=== PATIENT | male | born 1935 | race Caucasian/White ===

== ENCOUNTER 2017-10-26 09:35 | Day surgery (SDC) | payer MEDICARE, BC ==
[~2017-10-26] VITALS: Ht 188 cm; Wt 87.3 kg
[2017-10-26 10:06] VITALS: BP 131/87
[2017-10-26] MEDS ORDERED: LEVO50TA5 PO (10:17)
[2017-10-26] MEDS ORDERED: DRON400T PO (10:17)
[2017-10-26] MEDS ORDERED: DILT120C58 PO (10:17)
[2017-10-26] MEDS ORDERED: GABA300C10 PO (10:17)
[2017-10-26] MEDS ORDERED: APIX5TAB PO (10:17)
[2017-10-26 10:32] LABS: BASOPHILS # (AUTO) 0.02 x10^3/uL (0-0.1); BASOPHILS % (AUTO) 0 % (0-1); EOSINOPHILS # (AUTO) 0.07 x10^3/uL (0-0.4); EOSINOPHILS % (AUTO) 1 % (1-7); LYMPHOCYTES # (AUTO) 1.24 x10^3/uL (1-3.4); LYMPHOCYTES % (AUTO) 24 % (22-44); MD NO; MEAN CORPUSCULAR HEMOGLOBIN 33.2 pg (27.5-34.5); MEAN CORPUSCULAR HGB CONC 33.8 g/dL (33.2-36.2); MEAN CORPUSCULAR VOLUME 98.3 fL (81-97); MEAN PLATELET VOLUME 8.2 fL (7.4-10.4); MONOCYTES # (AUTO) 0.55 x10^3/uL (0.2-0.8); MONOCYTES % (AUTO) 10 % (2-9); NEUTROPHILS # (AUTO) 3.36 x10^3/uL (1.8-6.8); NEUTROPHILS % (AUTO) 64 % (42-75); PLATELET COUNT 248 x10^3/uL (130-400); RED BLOOD COUNT 5.17 x10^6/uL (4.38-5.82); RED CELL DISTRIBUTION WIDTH 13.6 % (9.4-14.8)
[2017-10-26 10:43] LABS: ANION GAP 10 mmol/L (5-15); CALCIUM 8.7 mg/dL (8.5-10.1); CHLORIDE 106 mmol/L (98-107); CREATININE 1.56 mg/dL (0.7-1.3)
[2017-10-26] MEDS ORDERED: PROPOFOL 10 MG/ML, 20ML ONE (16:23)
== END 2017-10-26 12:07 | disposition home or self-care (01) ==
LOC: CACL 09:35
PROVIDERS: ATTEND Internal Medicine Cardiovascular Disease
DX: I48.0 Paroxysmal atrial fibrillation (principal); I48.92 Unspecified atrial flutter; Z87.39 Personal history of other diseases of the musculoskeletal system and connective tissue; I10 Essential (primary) hypertension; Z79.01 Long term (current) use of anticoagulants; I49.5 Sick sinus syndrome; E03.9 Hypothyroidism, unspecified
CPT/HCPCS: 36415; 80048; 85025; 92960; 93005; J2704

== ENCOUNTER 2018-03-26 15:15 | Emergency (ER) | payer MEDICARE, BC ==
[~2018-03-26] VITALS: Ht 188 cm; Wt 87.7 kg
[~2018-03-26 15:15] MED LIST: APIX5TAB PO; DILT120C58 PO; DRON400T PO; GABA300C10 PO; LEVO50TA5 PO
[2018-03-26 16:36] LABS: BASOPHILS # (AUTO) 0.03 x10^3/uL (0-0.1); BASOPHILS % (AUTO) 0 % (0-1); EOSINOPHILS # (AUTO) 0.08 x10^3/uL (0-0.4); EOSINOPHILS % (AUTO) 1 % (1-7); LYMPHOCYTES # (AUTO) 1.61 x10^3/uL (1-3.4); LYMPHOCYTES % (AUTO) 26 % (22-44); MD NO; MEAN CORPUSCULAR HEMOGLOBIN 32.9 pg (27.5-34.5); MEAN CORPUSCULAR HGB CONC 33.5 g/dL (33.2-36.2); MEAN CORPUSCULAR VOLUME 98.2 fL (81-97); MEAN PLATELET VOLUME 8.1 fL (7.4-10.4); MONOCYTES # (AUTO) 0.78 x10^3/uL (0.2-0.8); MONOCYTES % (AUTO) 13 % (2-9); NEUTROPHILS # (AUTO) 3.77 x10^3/uL (1.8-6.8); NEUTROPHILS % (AUTO) 60 % (42-75); PLATELET COUNT 233 x10^3/uL (130-400); RED BLOOD COUNT 4.67 x10^6/uL (4.38-5.82); RED CELL DISTRIBUTION WIDTH 13.5 % (9.4-14.8)
[2018-03-26 16:46] LABS: ALANINE AMINOTRANSFERASE 29 U/L (12-78); ALBUMIN 3.4 g/dL (3.4-5.0); ANION GAP 9 mmol/L (5-15); CALCIUM 8.6 mg/dL (8.5-10.1); CHLORIDE 107 mmol/L (98-107); CREATININE 1.56 mg/dL (0.7-1.3)
[2018-03-26 16:49] LABS: ALKALINE PHOSPHATASE 40 U/L (45-117); BILIRUBIN,TOTAL 0.6 mg/dL (0.2-1.0); TOTAL PROTEIN 6.6 g/dL (6.4-8.2)
[2018-03-26 16:58] VITALS: BP 122/84
[2018-03-26 17:11] LABS: MICROSCOPIC NOT IND
[2018-03-26 17:15] LABS: CULTURE INDICATED? NO
== END 2018-03-26 18:13 | disposition home or self-care (01) ==
LOC: ED 17:05
DX: R10.30 Lower abdominal pain, unspecified (principal)
CPT/HCPCS: 36415; 74176; 80053; 81003; 83605; 83690; 85025; 99285

== ENCOUNTER → 2018-04-11 | Outpatient (CLI) | payer MEDICARE, BC | END | disposition home or self-care (01) | LOC: RAD 14:45 | PROVIDERS: ATTEND Internal Medicine | DX: M51.35 Other intervertebral disc degeneration, thoracolumbar region (principal); M41.86 Other forms of scoliosis, lumbar region; M43.8X5 Other specified deforming dorsopathies, thoracolumbar region | CPT/HCPCS: 72072; 72110 ==

== ENCOUNTER → 2018-05-29 | Outpatient (CLI) | payer MEDICARE, BC | END | disposition home or self-care (01) | LOC: CFH 12:14 | PROVIDERS: ATTEND Family Medicine | DX: R10.30 Lower abdominal pain, unspecified (principal) | CPT/HCPCS: 74018 ==

== ENCOUNTER → 2018-09-07 | Outpatient (CLI) | payer MEDICARE, BC ==
[~2018-09-07] MED LIST changes: +REGADENOSON 0.4 MG/5 ML SYRINGE ONE
== END | disposition home or self-care (01) ==
LOC: CVU 06:56
PROVIDERS: ATTEND Internal Medicine Cardiovascular Disease
DX: I08.1 Rheumatic disorders of both mitral and tricuspid valves (principal); I48.0 Paroxysmal atrial fibrillation
CPT/HCPCS: 78452; 93017; 93306; A9502; J2785

== ENCOUNTER 2018-10-06 07:54 | Day surgery (SDC) | payer MEDICARE, BC ==
[~2018-10-06] VITALS: Ht 188 cm; Wt 85.0 kg
[~2018-10-06 07:54] MED LIST changes: -REGADENOSON 0.4 MG/5 ML SYRINGE ONE
[2018-10-06] MEDS ORDERED: SODIUM CHLORIDE 0.9% 500 ML IV PRN (08:18)
[2018-10-06] MEDS ORDERED: TRAM50TA2 PO (09:06)
[2018-10-06] MEDS ORDERED: METO25TA35 PO (09:06)
[2018-10-06 09:17] VITALS: BP 121/96
[2018-10-06 09:24] LABS: ANION GAP 4 mmol/L (5-15); CALCIUM 9.4 mg/dL (8.5-10.1); CHLORIDE 106 mmol/L (98-107); CREATININE 1.37 mg/dL (0.7-1.3)
[2018-10-06] MEDS ORDERED: PROPOFOL 10 MG/ML, 20ML ONE (10:48)
== END 2018-10-06 12:13 | disposition home or self-care (01) ==
LOC: CACL 07:54
PROVIDERS: ATTEND Internal Medicine Cardiovascular Disease
DX: I48.92 Unspecified atrial flutter (principal); I10 Essential (primary) hypertension; I48.91 Unspecified atrial fibrillation; M19.90 Unspecified osteoarthritis, unspecified site; Z85.46 Personal history of malignant neoplasm of prostate; Z79.899 Other long term (current) drug therapy; Z98.890 Other specified postprocedural states
CPT/HCPCS: 36415; 80048; 92960; J2704

== ENCOUNTER → 2018-10-26 | Outpatient (CLI) | payer MEDICARE, BC ==
[~2018-10-26] MED LIST changes: +ACET500C3 PO; +DULO30CA2 PO; +METO25TA35 PO; +TRAM50TA2 PO
[2018-10-26 12:58] LABS: BASOPHILS # (AUTO) 0.02 x10^3/uL (0-0.1); BASOPHILS % (AUTO) 0 % (0-1); EOSINOPHILS # (AUTO) 0.04 x10^3/uL (0-0.4); EOSINOPHILS % (AUTO) 0 % (1-7); LYMPHOCYTES # (AUTO) 1.21 x10^3/uL (1-3.4); LYMPHOCYTES % (AUTO) 13 % (22-44); MD NO; MEAN CORPUSCULAR HGB CONC 33.4 g/dL (33.2-36.2); MEAN CORPUSCULAR VOLUME 95.9 fL (81-97); MEAN PLATELET VOLUME 7.9 fL (7.4-10.4); MONOCYTES # (AUTO) 0.94 x10^3/uL (0.2-0.8); MONOCYTES % (AUTO) 10 % (2-9); NEUTROPHILS # (AUTO) 6.99 x10^3/uL (1.8-6.8); NEUTROPHILS % (AUTO) 76 % (42-75); PLATELET COUNT 371 x10^3/uL (130-400); RED BLOOD COUNT 4.14 x10^6/uL (4.38-5.82); RED CELL DISTRIBUTION WIDTH 13.9 % (9.4-14.8)
[2018-10-26 13:34] LABS: ANION GAP 6 mmol/L (5-15); CALCIUM 9.8 mg/dL (8.5-10.1); CHLORIDE 99 mmol/L (98-107); CREATININE 1.48 mg/dL (0.7-1.3)
== END | disposition home or self-care (01) ==
LOC: CFH 11:12
PROVIDERS: ATTEND Family Medicine
DX: R06.02 Shortness of breath (principal); I48.0 Paroxysmal atrial fibrillation; I49.5 Sick sinus syndrome; N28.9 Disorder of kidney and ureter, unspecified; I10 Essential (primary) hypertension
CPT/HCPCS: 36415; 71046; 80048; 85025

== ENCOUNTER 2018-10-30 08:13 | Observation (INO) | payer MEDICARE, BC ==
[~2018-10-30] VITALS: Ht 188 cm; Wt 81.4 kg
[~2018-10-30 08:13] MED LIST changes: -ACET500C3 PO; -DULO30CA2 PO
[2018-10-30] MEDS ORDERED: SODIUM CHLORIDE 0.9% 1,000 ML IV SCH (08:35)
[2018-10-30 08:44] VITALS: BP 116/91
[2018-10-30] MEDS ORDERED: SODIUM CHLORIDE 0.9% 1,000 ML IV ONE (09:00)
[2018-10-30] MEDS ORDERED: PLEASE ENTER HEIGHT AND WEIGHT MC SCH (09:00)
[2018-10-30] MEDS ORDERED: DULO30CA2 PO (09:03)
[2018-10-30] MEDS ORDERED: ACET500C3 PO (09:05)
[2018-10-30] MEDS ORDERED: ACETAMINOPHEN 325 MG TABLET ONE (10:55)
[2018-10-30] MEDS ORDERED: ACETAMINOPHEN 325 MG TABLET PO ONE (11:00)
[2018-10-30] MEDS ORDERED: LIDOCAINE 1%, 20ML ONE (11:39)
[2018-10-30] MEDS ORDERED: FENTANYL PF 250 MCG/5ML ONE (11:43)
[2018-10-30] MEDS ORDERED: PROPOFOL 50 ML ONE (11:43)
[2018-10-30] MEDS ORDERED: DEXAMETHASONE 4 MG/ML, 1ML ONE (12:20)
[2018-10-30] MEDS ORDERED: ONDANSETRON 2MG/ML, 2ML ONE (12:20)
[2018-10-30] MEDS ORDERED: ROCURONIUM 10MG/ML,5ML ONE (12:20)
[2018-10-30] MEDS ORDERED: SUCCINYLCHOLINE 20 MG/ML, 10ML ONE (12:20)
[2018-10-30] MEDS ORDERED: MIDAZOLAM 1 MG/ML, 2ML ONE (12:23)
[2018-10-30] MEDS ORDERED: PROTAMINE SULFATE 10 MG/ML, 5ML ONE (13:53)
[2018-10-30] MEDS ORDERED: MORPHINE SULFATE 4 MG/ML, 1ML IVPush PRN (14:30)
[2018-10-30] MEDS ORDERED: ONDANSETRON ODT 8 MG PO PRN (14:30)
[2018-10-30] MEDS ORDERED: ACETAMINOPHEN 325 MG TABLET PO PRN (14:30)
[2018-10-30] MEDS ORDERED: ONDANSETRON 2MG/ML, 2ML IV PRN (14:30)
[2018-10-30] MEDS ORDERED: DIAZEPAM 5 MG/ML, 2ML IVPush PRN (14:30)
[2018-10-30] MEDS ORDERED: ACETAMINOPHEN 500 MG PO PRN (14:30)
[2018-10-30] MEDS ORDERED: EPHEDRINE 50 MG/ML, 1ML IM PRN (14:30)
[2018-10-30] MEDS ORDERED: OXYcodone 5 MG/5 ML ORAL.SOL UDC PO PRN (14:30)
[2018-10-30] MEDS ORDERED: DIPHENHYDRAMINE 50 MG/ML, 1ML IVPush PRN (14:30)
[2018-10-30] MEDS ORDERED: FENTANYL PF 100 MCG/2ML IV PRN (14:30)
[2018-10-30] MEDS ORDERED: APIXABAN 5 MG TABLET ONE (14:59)
[2018-10-30] MEDS: APIXABAN 5 MG TABLET PO SCH (15:01)
[2018-10-30] MEDS ORDERED: OXYcodone 5 MG/5 ML ORAL.SOL UDC ONE (15:02)
[2018-10-30] MEDS ORDERED: FENTANYL PF 100 MCG/2ML ONE (15:02)
[2018-10-30 15:53] VITALS: BP 95/62
[2018-10-30] MEDS: GABAPENTIN 300 MG CAPSULE PO SCH ×2 (16:13→20:25)
[2018-10-30 18:50] VITALS: BP 94/58
[2018-10-30] MEDS: ACETAMINOPHEN 325 MG TABLET PO PRN (20:25)
[2018-10-30] MEDS: METOPROLOL TARTRATE 25 MG TABLET PO SCH (20:29)
[2018-10-30] MEDS ORDERED: APIXABAN 5 MG TABLET PO SCH (21:00)
[2018-10-31 00:14] VITALS: BP 112/70
[2018-10-31] MEDS: ACETAMINOPHEN 325 MG TABLET PO PRN ×2 (05:05→09:38)
[2018-10-31 07:04] VITALS: BP 116/74
[2018-10-31] MEDS ORDERED: DULOXETINE 30 MG CAPSULE.DR PO SCH (09:00)
[2018-10-31] MEDS ORDERED: LEVOTHYROXINE 50 MCG TABLET PO SCH (09:00)
[2018-10-31] MEDS: APIXABAN 5 MG TABLET PO SCH (09:29)
[2018-10-31] MEDS: GABAPENTIN 300 MG CAPSULE PO SCH (09:29)
[2018-10-31] MEDS: METOPROLOL TARTRATE 25 MG TABLET PO SCH (09:29)
[2018-10-31 12:39] VITALS: BP 121/81
== END 2018-10-31 13:00 | disposition home or self-care (01) ==
LOC: CACL 08:13 → INTOOBSV 14:02 → ORIP 14:02 → 5SO 15:36
PROVIDERS: ADMIT Internal Medicine Cardiovascular Disease; ATTEND Internal Medicine Cardiovascular Disease
DX: I48.4 Atypical atrial flutter (principal); I10 Essential (primary) hypertension; I48.0 Paroxysmal atrial fibrillation; M19.90 Unspecified osteoarthritis, unspecified site; Z95.0 Presence of cardiac pacemaker
CPT/HCPCS: 85347; 93308; 93312; 93321; 93325; 93462; 93613; 93621; 93653; 93662; C1730; C1732; C1759; C1766; C1893; C1894; G0378; J0330; J1100; J1642; J2250; J2405; J2704; J2720; J3010; J3490

== ENCOUNTER 2018-11-08 09:19 | Inpatient (IN) | payer MEDICARE, BC ==
[~2018-11-08] VITALS: Ht 188 cm; Wt 79.9 kg
[~2018-11-08 09:19] MED LIST changes: +ACET500C3 PO; +DULO30CA2 PO
--- NOTE | 2018-11-08 09:37 | NUR ---
PT PRESENTED TO ED WITH ABD PAIN AND BLOOD IN URINE THAT HAS BEEN GOING ON FOR A " WHILE". PT IN RAPID AFIB WITH RVR. PT HAD A CARDIAC ABLATION 1.5 WEEKS AGO. EKG DONE IN TRIAGE. PT PLACED IN TRAUMA AND PLACED ON BP, CARDIAC, AND CONT. PULSE OXIMETER. ASSESSMENT COMPLETED. AT BEDSIDE AND AWAITING MD.
[2018-11-08] MEDS ORDERED: DILTIAZEM 125 MG in SODIUM CHLORIDE 0.9% 100 ML IV SCH (09:47)
[2018-11-08] MEDS ORDERED: DILTIAZEM 5 MG/ML, 5ML ONE (09:50)
[2018-11-08] MEDS ORDERED: ONDANSETRON 2MG/ML, 2ML ONE (09:51)
[2018-11-08] MEDS ORDERED: MORPHINE SULFATE 4 MG/ML, 1ML ONE (09:51)
[2018-11-08] MEDS ORDERED: ONDANSETRON 2MG/ML, 2ML IVPush ONE (10:00)
[2018-11-08] MEDS ORDERED: DILTIAZEM 5 MG/ML, 5ML IV ONE (10:00)
[2018-11-08] MEDS ORDERED: MORPHINE SULFATE 4 MG/ML, 1ML IVPush PRN (10:00)
--- NOTE | 2018-11-08 10:10 | NUR ---
CARDIZEM GTT STARTED AND HEART RATE DOWN TO 107. PT THEN TAKEN TO CT SCAN.
[2018-11-08] MEDS ORDERED: HYDROmorphone 1 MG/ML, 1ML VIAL ONE ×2 (10:14→12:19)
[2018-11-08 10:17] LABS: BASOPHILS # (AUTO) 0.02 x10^3/uL (0-0.1); BASOPHILS % (AUTO) 0 % (0-1); EOSINOPHILS # (AUTO) 0.04 x10^3/uL (0-0.4); EOSINOPHILS % (AUTO) 0 % (1-7); LYMPHOCYTES # (AUTO) 0.94 x10^3/uL (1-3.4); LYMPHOCYTES % (AUTO) 9 % (22-44); MD NO; MEAN CORPUSCULAR HEMOGLOBIN 31.2 pg (27.5-34.5); MEAN CORPUSCULAR HGB CONC 32.8 g/dL (33.2-36.2); MEAN CORPUSCULAR VOLUME 95.1 fL (81-97); MEAN PLATELET VOLUME 7.8 fL (7.4-10.4); MONOCYTES # (AUTO) 1.06 x10^3/uL (0.2-0.8); MONOCYTES % (AUTO) 10 % (2-9); NEUTROPHILS # (AUTO) 8.51 x10^3/uL (1.8-6.8); NEUTROPHILS % (AUTO) 81 % (42-75); PLATELET COUNT 378 x10^3/uL (130-400); RED BLOOD COUNT 4.46 x10^6/uL (4.38-5.82); RED CELL DISTRIBUTION WIDTH 14.1 % (9.4-14.8)
[2018-11-08 10:24] LABS: ALBUMIN 3.5 g/dL (3.4-5.0); ANION GAP 11 mmol/L (5-15); CALCIUM 9.7 mg/dL (8.5-10.1); CHLORIDE 102 mmol/L (98-107)
[2018-11-08 10:28] LABS: ALANINE AMINOTRANSFERASE 23 U/L (12-78); ALKALINE PHOSPHATASE 49 U/L (45-117); BILIRUBIN,TOTAL 0.7 mg/dL (0.2-1.0); CREATININE 1.45 mg/dL (0.7-1.3); TOTAL PROTEIN 7.7 g/dL (6.4-8.2)
[2018-11-08] MEDS ORDERED: HYDROmorphone 1 MG/ML, 1ML INJ IV ONE (10:30)
--- NOTE | 2018-11-08 10:31 | NUR ---
PT BACK FROM CT SCAN. PT PLACED ON BP, CARDIAC AND CONT. PULSE OXIMETR. PT STATES ABD PAIN OF 10/10. MD AWARE AND DILAUDID GIVEN.
[2018-11-08 10:51] LABS: INTERNATIONAL NORMALIZED RATIO 1.09 (0.93-1.1); PROTHROMBIN TIME 11.4 Seconds (9.6-11.5)
[2018-11-08 11:30] LABS: MICROSCOPIC AUTO
[2018-11-08 11:39] LABS: CULTURE INDICATED? NO
--- NOTE | 2018-11-08 12:06 | NUR ---
ATTEMPTED TO CALL REPORT TO FLOOR. NURSE NOT AVAILABLE.
--- NOTE | 2018-11-08 12:18 | NUR ---
REPORT CALLED TO KAJAL. PT REQUESTING MORE PAIN MEDICATIONS.
--- NOTE | 2018-11-08 12:26 | NUR ---
PT TAKEN TO FLOOR ON ZOLL MONITOR.
[2018-11-08] MEDS ORDERED: HYDROmorphone 2 MG/ML, 1ML IV ONE (12:30)
[2018-11-08 12:40] VITALS: BP 113/72
[2018-11-08] MEDS ORDERED: ONDANSETRON 2MG/ML, 2ML IVPush PRN (13:00)
[2018-11-08] MEDS ORDERED: HYDROmorphone 2 MG/ML, 1ML IVPush PRN (13:00)
[2018-11-08] MEDS: DILTIAZEM 125 MG in SODIUM CHLORIDE 0.9% 100 ML IV SCH (13:00)
[2018-11-08] MEDS: GABAPENTIN 300 MG CAPSULE PO SCH ×2 (16:16→19:49)
[2018-11-08] MEDS: MORPHINE SULFATE 4 MG/ML, 1ML IVPush PRN ×4 (16:16→23:57)
[2018-11-08 19:26] VITALS: BP 119/74
[2018-11-08] MEDS: ACETAMINOPHEN 325 MG TABLET PO PRN (19:49)
[2018-11-08] MEDS: METOPROLOL TARTRATE 25 MG TABLET PO SCH (19:49)
[2018-11-08] MEDS: D5%-0.45NACL+KCL 20MEQ 1,000 ML IV SCH (23:56)
[2018-11-09 01:11] VITALS: BP 128/78
[2018-11-09] MEDS: ACETAMINOPHEN 325 MG TABLET PO PRN ×3 (02:15→14:26)
[2018-11-09] MEDS: MORPHINE SULFATE 4 MG/ML, 1ML IVPush PRN ×3 (04:43→12:38)
[2018-11-09] MEDS: DILTIAZEM 125 MG in SODIUM CHLORIDE 0.9% 100 ML IV SCH (04:51)
[2018-11-09 05:06] LABS: ANION GAP 6 mmol/L (5-15); CALCIUM 9.5 mg/dL (8.5-10.1); CHLORIDE 103 mmol/L (98-107)
[2018-11-09 05:12] LABS: BASOPHILS # (AUTO) 0.01 x10^3/uL (0-0.1); BASOPHILS % (AUTO) 0 % (0-1); EOSINOPHILS # (AUTO) 0.05 x10^3/uL (0-0.4); EOSINOPHILS % (AUTO) 0 % (1-7); LYMPHOCYTES # (AUTO) 1.06 x10^3/uL (1-3.4); LYMPHOCYTES % (AUTO) 9 % (22-44); MD NO; MEAN CORPUSCULAR HEMOGLOBIN 32.2 pg (27.5-34.5); MEAN CORPUSCULAR HGB CONC 33.5 g/dL (33.2-36.2); MEAN CORPUSCULAR VOLUME 96.1 fL (81-97); MEAN PLATELET VOLUME 7.6 fL (7.4-10.4); MONOCYTES % (AUTO) 12 % (2-9); NEUTROPHILS # (AUTO) 8.98 x10^3/uL (1.8-6.8); NEUTROPHILS % (AUTO) 78 % (42-75); PLATELET COUNT 321 x10^3/uL (130-400); RED BLOOD COUNT 4.02 x10^6/uL (4.38-5.82); RED CELL DISTRIBUTION WIDTH 14.1 % (9.4-14.8)
[2018-11-09 05:21] LABS: CREATININE 1.67 mg/dL (0.7-1.3)
[2018-11-09] MEDS: D5%-0.45NACL+KCL 20MEQ 1,000 ML IV SCH ×3 (06:05→16:59)
[2018-11-09 07:08] VITALS: BP 136/81
[2018-11-09] MEDS: GABAPENTIN 300 MG CAPSULE PO SCH ×3 (08:23→21:31)
[2018-11-09] MEDS: LEVOTHYROXINE 50 MCG TABLET PO SCH (08:23)
[2018-11-09] MEDS: METOPROLOL TARTRATE 25 MG TABLET PO SCH ×2 (08:24→21:31)
[2018-11-09] MEDS ORDERED: ONDANSETRON 2MG/ML, 2ML ONE (10:16)
[2018-11-09] MEDS ORDERED: SUCCINYLCHOLINE 20 MG/ML, 10ML ONE (10:16)
[2018-11-09] MEDS ORDERED: PROPOFOL 10 MG/ML, 20ML ONE (10:16)
[2018-11-09] MEDS ORDERED: ROCURONIUM 10MG/ML,5ML ONE (10:16)
[2018-11-09 14:04] VITALS: BP 139/81
[2018-11-09] MEDS ORDERED: MIDAZOLAM 1 MG/ML, 2ML ONE (15:09)
[2018-11-09] MEDS ORDERED: FENTANYL PF 100 MCG/2ML ONE (15:09)
[2018-11-09] MEDS ORDERED: DEXAMETHASONE 4 MG/ML, 1ML ONE (15:35)
[2018-11-09] MEDS ORDERED: OMNIPAQUE 350 MG/ML, 50 ML BOTTLE ONE (16:24)
[2018-11-09] MEDS ORDERED: MEPERIDINE/PF 25MG/0.5ML IVPush PRN (16:30)
[2018-11-09] MEDS ORDERED: HYDROmorphone 2 MG/ML, 1ML IVPush PRN (16:30)
[2018-11-09] MEDS ORDERED: hydrALAzine 20 MG/ML, 1ML IV PRN (16:30)
[2018-11-09] MEDS ORDERED: ONDANSETRON ODT 8 MG PO PRN (16:30)
[2018-11-09] MEDS ORDERED: PROMETHAZINE 12.5 MG SUPP PR PRN (16:30)
[2018-11-09] MEDS ORDERED: FENTANYL PF 100 MCG/2ML IV PRN (16:30)
[2018-11-09] MEDS ORDERED: PROMETHAZINE 25 MG/ML, 1ML IV PRN (16:30)
[2018-11-09] MEDS ORDERED: MORPHINE SULFATE 4 MG/ML, 1ML IVPush PRN (16:30)
[2018-11-09] MEDS ORDERED: MIDAZOLAM 1 MG/ML, 2ML IV PRN (16:30)
[2018-11-09] MEDS ORDERED: DIAZEPAM 5 MG/ML, 2ML IVPush PRN (16:30)
[2018-11-09] MEDS ORDERED: DILTIAZEM 120 MG CAP.ER.24H PO SCH (16:30)
[2018-11-09] MEDS ORDERED: EPHEDRINE 50 MG/ML, 1ML IVPush PRN (16:30)
[2018-11-09] MEDS ORDERED: ONDANSETRON 2MG/ML, 2ML IV PRN (16:30)
[2018-11-09] MEDS ORDERED: OXYcodone 5 MG/5 ML ORAL.SOL UDC PO PRN (16:30)
[2018-11-09] MEDS ORDERED: ALBUTEROL SULFATE 2.5 MG/3 ML NPPB PRN (16:30)
[2018-11-09] MEDS ORDERED: LABETALOL 5MG/ML, 20ML IV PRN (16:30)
[2018-11-09] MEDS ORDERED: HALOPERIDOL 5 MG/ML IV PRN (16:30)
[2018-11-09] MEDS ORDERED: MEPERIDINE/PF 25MG/ML,1ML ONE (17:00)
[2018-11-09 17:53] VITALS: BP 132/76
[2018-11-09] MEDS: DILTIAZEM 120 MG CAP.ER.24H PO SCH (18:17)
[2018-11-09] MEDS: SODIUM CHLORIDE 0.9% 1,000 ML IV SCH (18:17)
[2018-11-09 19:14] VITALS: BP 109/43
[2018-11-10] MEDS: SODIUM CHLORIDE 0.9% 1,000 ML IV SCH ×5 (00:29→20:26)
[2018-11-10 02:39] VITALS: BP 117/76
[2018-11-10] MEDS: ACETAMINOPHEN 325 MG TABLET PO PRN ×4 (02:45→22:06)
[2018-11-10 05:07] LABS: BASOPHILS # (AUTO) 0.01 x10^3/uL (0-0.1); BASOPHILS % (AUTO) 0 % (0-1); EOSINOPHILS % (AUTO) 0 % (1-7); LYMPHOCYTES # (AUTO) 0.61 x10^3/uL (1-3.4); LYMPHOCYTES % (AUTO) 6 % (22-44); MD NO; MEAN CORPUSCULAR HEMOGLOBIN 31.6 pg (27.5-34.5); MEAN PLATELET VOLUME 7.9 fL (7.4-10.4); MONOCYTES # (AUTO) 0.48 x10^3/uL (0.2-0.8); MONOCYTES % (AUTO) 5 % (2-9); NEUTROPHILS # (AUTO) 8.88 x10^3/uL (1.8-6.8); NEUTROPHILS % (AUTO) 89 % (42-75); PLATELET COUNT 285 x10^3/uL (130-400); RED CELL DISTRIBUTION WIDTH 14.2 % (9.4-14.8)
[2018-11-10 05:20] LABS: CHLORIDE 106 mmol/L (98-107)
[2018-11-10 05:26] LABS: ANION GAP 6 mmol/L (5-15); CALCIUM 9.1 mg/dL (8.5-10.1); CREATININE 1.45 mg/dL (0.7-1.3)
[2018-11-10 09:10] VITALS: BP 104/68
[2018-11-10] MEDS: METOPROLOL TARTRATE 25 MG TABLET PO SCH ×2 (09:39→20:23)
[2018-11-10] MEDS: LEVOTHYROXINE 50 MCG TABLET PO SCH (09:39)
[2018-11-10] MEDS: GABAPENTIN 300 MG CAPSULE PO SCH ×3 (09:39→20:23)
[2018-11-10] MEDS ORDERED: OMNIPAQUE 350 MG/ML, 100ML BOTTLE ONE (10:04)
[2018-11-10] MEDS: APIXABAN 5 MG TABLET PO SCH ×2 (11:04→20:23)
[2018-11-10 14:46] VITALS: BP 106/67
[2018-11-10] MEDS: DILTIAZEM 120 MG CAP.ER.24H PO SCH (17:14)
[2018-11-10 19:59] VITALS: BP 111/71
[2018-11-11 01:09] VITALS: BP 134/81
[2018-11-11 05:05] LABS: BASOPHILS # (AUTO) 0.02 x10^3/uL (0-0.1); BASOPHILS % (AUTO) 0 % (0-1); EOSINOPHILS # (AUTO) 0.01 x10^3/uL (0-0.4); EOSINOPHILS % (AUTO) 0 % (1-7); LYMPHOCYTES % (AUTO) 6 % (22-44); MD NO; MEAN CORPUSCULAR HEMOGLOBIN 31.9 pg (27.5-34.5); MEAN CORPUSCULAR HGB CONC 33.4 g/dL (33.2-36.2); MEAN CORPUSCULAR VOLUME 95.6 fL (81-97); MEAN PLATELET VOLUME 7.8 fL (7.4-10.4); MONOCYTES # (AUTO) 1.16 x10^3/uL (0.2-0.8); MONOCYTES % (AUTO) 8 % (2-9); NEUTROPHILS # (AUTO) 12.25 x10^3/uL (1.8-6.8); NEUTROPHILS % (AUTO) 85 % (42-75); PLATELET COUNT 313 x10^3/uL (130-400); RED BLOOD COUNT 3.88 x10^6/uL (4.38-5.82); RED CELL DISTRIBUTION WIDTH 14.1 % (9.4-14.8)
[2018-11-11 05:07] LABS: CALCIUM 9.3 mg/dL (8.5-10.1); CHLORIDE 108 mmol/L (98-107)
[2018-11-11 05:12] LABS: ALANINE AMINOTRANSFERASE 21 U/L (12-78); ALBUMIN 2.7 g/dL (3.4-5.0); ALKALINE PHOSPHATASE 41 U/L (45-117); ANION GAP 8 mmol/L (5-15); BILIRUBIN,TOTAL 0.3 mg/dL (0.2-1.0); CREATININE 1.36 mg/dL (0.7-1.3); TOTAL PROTEIN 6.2 g/dL (6.4-8.2)
[2018-11-11] MEDS: ACETAMINOPHEN 325 MG TABLET PO PRN (07:13)
[2018-11-11 08:00] VITALS: BP 129/79
[2018-11-11] MEDS: GABAPENTIN 300 MG CAPSULE PO SCH (08:17)
[2018-11-11] MEDS: METOPROLOL TARTRATE 25 MG TABLET PO SCH (08:17)
[2018-11-11] MEDS: DILTIAZEM 120 MG CAP.ER.24H PO SCH (08:17)
[2018-11-11] MEDS: LEVOTHYROXINE 50 MCG TABLET PO SCH (08:17)
[2018-11-11] MEDS: APIXABAN 5 MG TABLET PO SCH (08:18)
[2018-11-11] MEDS: SODIUM CHLORIDE 0.9% 1,000 ML IV SCH (10:36)
[2018-11-11] MEDS ORDERED: DILT120C9 PO (10:49)
== END 2018-11-11 13:10 | disposition home or self-care (01) | DRG 660 ==
LOC: ED 11:01 → EDIP 11:27 → 5SO 12:32 → DCLOUNGE 11-11 12:35
PROVIDERS: ADMIT Hospitalist; ATTEND Hospitalist
PROC: 0T778DZ Dilation of Left Ureter with Intraluminal Device, Via Natural or Artificial Opening Endoscopic (ICD-10-PCS; 2018-11-09)
PROC: 0T9B8ZZ Drainage of Bladder, Via Natural or Artificial Opening Endoscopic (ICD-10-PCS; 2018-11-09)
PROC: BT1F1ZZ Fluoroscopy of Left Kidney, Ureter and Bladder using Low Osmolar Contrast (ICD-10-PCS; principal; 2018-11-09 14:30)
DX: N13.30 Unspecified hydronephrosis (principal); E44.0 Moderate protein-calorie malnutrition; D68.69 Other thrombophilia; N28.89 Other specified disorders of kidney and ureter; I48.0 Paroxysmal atrial fibrillation; N17.0 Acute kidney failure with tubular necrosis; R31.0 Gross hematuria; G89.29 Other chronic pain; M54.9 Dorsalgia, unspecified; M54.6 Pain in thoracic spine; D72.829 Elevated white blood cell count, unspecified; Z79.01 Long term (current) use of anticoagulants; Z85.46 Personal history of malignant neoplasm of prostate; Z90.5 Acquired absence of kidney; Z68.22 Body mass index [BMI] 22.0-22.9, adult; Z95.0 Presence of cardiac pacemaker
CPT/HCPCS: 36415; 71045; 74170; 74176; 74420; 80048; 80053; 81001; 83690; 83735; 84443; 85025; 85610; 85730; 88112; 88305; 93005; 96365; 96366; 96375; 96376; C1726; G0378; J1100; J1170; J2175; J2250; J2405; J2704; J3010; Q9967; C1769; C2617; J0330; J3480; J7030

== ENCOUNTER 2018-12-02 08:20 | Emergency (ER) | payer MEDICARE, BC ==
[~2018-12-02] VITALS: Ht 188 cm; Wt 78.0 kg
[~2018-12-02 08:20] MED LIST changes: +ACET500T71 PO; +DILT120C9 PO; +METO-93 PO
[2018-12-02] MEDS ORDERED: SODIUM CHLORIDE FLUSH 10ML SYR IVF ONE (08:30)
--- NOTE | 2018-12-02 08:51 | NUR ---
CT WAITING ON LAB RESULTS TO PERFORM EXAM
[2018-12-02 08:55] LABS: BASOPHILS # (AUTO) 0.03 x10^3/uL (0-0.1); BASOPHILS % (AUTO) 1 % (0-1); EOSINOPHILS # (AUTO) 0.11 x10^3/uL (0-0.4); EOSINOPHILS % (AUTO) 2 % (1-7); LYMPHOCYTES % (AUTO) 23 % (22-44); MD NO; MEAN CORPUSCULAR HEMOGLOBIN 30.9 pg (27.5-34.5); MEAN CORPUSCULAR HGB CONC 31.6 g/dL (33.2-36.2); MEAN CORPUSCULAR VOLUME 97.6 fL (81-97); MEAN PLATELET VOLUME 7.4 fL (7.4-10.4); MONOCYTES # (AUTO) 0.63 x10^3/uL (0.2-0.8); MONOCYTES % (AUTO) 10 % (2-9); NEUTROPHILS # (AUTO) 3.97 x10^3/uL (1.8-6.8); NEUTROPHILS % (AUTO) 65 % (42-75); PLATELET COUNT 358 x10^3/uL (130-400); RED CELL DISTRIBUTION WIDTH 14.3 % (9.4-14.8)
--- NOTE | 2018-12-02 08:59 | NUR ---
THIS IS A 83 YEAR OLD MALE WHO C/O OF FLUID LEAKAGE FROM POST OP PUNCTURE SITEON LOWER ABD AREA, LARGE AMOUNT OF YELLOW, WHITE FLUID. PT HAD KIDNEY REMOVAL X 10 DAYS AGO DUE TO TUMOR REMOVAL. PT HAS HX OF A FLUTTER (UNCONTROLLED), HAD AN ABLATION X 1 MONTH AGO. FAMILY AT
[2018-12-02] MEDS ORDERED: PLEASE ENTER HEIGHT AND WEIGHT MC SCH (09:00)
[2018-12-02 09:07] LABS: ALANINE AMINOTRANSFERASE 33 U/L (12-78); ALBUMIN 3.3 g/dL (3.4-5.0); ANION GAP 6 mmol/L (5-15); CALCIUM 8.6 mg/dL (8.5-10.1); CHLORIDE 106 mmol/L (98-107)
[2018-12-02 09:09] LABS: ALKALINE PHOSPHATASE 48 U/L (45-117); BILIRUBIN,TOTAL 0.5 mg/dL (0.2-1.0); TOTAL PROTEIN 6.9 g/dL (6.4-8.2)
[2018-12-02 09:17] LABS: INTERNATIONAL NORMALIZED RATIO 1.08 (0.93-1.1); PROTHROMBIN TIME 11.3 Seconds (9.6-11.5)
[2018-12-02] MEDS ORDERED: SODIUM CHLORIDE 0.9% 1,000ML IVBOLUS ONE (09:30)
--- NOTE | 2018-12-02 09:44 | NUR ---
PT TO CT SCAN VIA [facility]
--- NOTE | 2018-12-02 10:09 | NUR ---
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 AWAITING TEST RESULTS, AT BS. PT VERALIZED NO OTHER NEEDS AT THIS TIME.
[2018-12-02 11:02] VITALS: BP 128/85
--- NOTE | 2018-12-02 11:02 | NUR ---
D/C INSTRUCTIONS GIVEN, WITH EXTRA WOUND CARE SUPPLIES, LOW FAT DIET INSTRUCTIONS GIVEN Patient/Caregiver given discharge instructions and they have confirmed that they understand the instructions. Patient ambulatory with steady gait.
== END 2018-12-02 11:05 | disposition home or self-care (01) ==
LOC: ED 08:54
DX: T81.89XA Other complications of procedures, not elsewhere classified, initial encounter (principal); I89.8 Other specified noninfective disorders of lymphatic vessels and lymph nodes; E03.9 Hypothyroidism, unspecified; M19.90 Unspecified osteoarthritis, unspecified site; I48.91 Unspecified atrial fibrillation; G89.29 Other chronic pain; Z95.0 Presence of cardiac pacemaker; Z85.46 Personal history of malignant neoplasm of prostate
CPT/HCPCS: 36415; 74176; 80053; 83690; 85025; 85610; 99284

== ENCOUNTER → 2018-12-20 | Outpatient (CLI) | payer MEDICARE, BC ==
[~2018-12-20] MED LIST changes: +DILT120C80 PO; +FLUO20CA19 PO
== END | disposition home or self-care (01) ==
LOC: PETCFH 08:01
PROVIDERS: ATTEND Specialist
DX: C65.2 Malignant neoplasm of left renal pelvis (principal); R59.9 Enlarged lymph nodes, unspecified; Z95.0 Presence of cardiac pacemaker
CPT/HCPCS: 78815; A9552

== ENCOUNTER 2018-12-22 08:06 | Observation (INO) | payer MEDICARE, BC ==
[2018-12-20 10:22] VITALS: BP 119/81
[2018-12-20 10:48] LABS: BASOPHILS # (AUTO) 0.03 x10^3/uL (0-0.1); BASOPHILS % (AUTO) 1 % (0-1); EOSINOPHILS # (AUTO) 0.11 x10^3/uL (0-0.4); EOSINOPHILS % (AUTO) 2 % (1-7); LYMPHOCYTES # (AUTO) 1.54 x10^3/uL (1-3.4); LYMPHOCYTES % (AUTO) 22 % (22-44); MD NO; MEAN CORPUSCULAR HEMOGLOBIN 31.7 pg (27.5-34.5); MEAN CORPUSCULAR HGB CONC 32.7 g/dL (33.2-36.2); MEAN CORPUSCULAR VOLUME 96.8 fL (81-97); MEAN PLATELET VOLUME 7.7 fL (7.4-10.4); MONOCYTES # (AUTO) 0.68 x10^3/uL (0.2-0.8); MONOCYTES % (AUTO) 10 % (2-9); NEUTROPHILS # (AUTO) 4.78 x10^3/uL (1.8-6.8); NEUTROPHILS % (AUTO) 67 % (42-75); PLATELET COUNT 275 x10^3/uL (130-400); RED BLOOD COUNT 4.82 x10^6/uL (4.38-5.82); RED CELL DISTRIBUTION WIDTH 15.4 % (9.4-14.8)
[2018-12-20 11:00] LABS: ALANINE AMINOTRANSFERASE 46 U/L (12-78); ALBUMIN 3.9 g/dL (3.4-5.0); ANION GAP 6 mmol/L (5-15); CALCIUM 9.1 mg/dL (8.5-10.1); CHLORIDE 102 mmol/L (98-107)
[2018-12-20 11:03] LABS: ALKALINE PHOSPHATASE 53 U/L (45-117); BILIRUBIN,TOTAL 0.9 mg/dL (0.2-1.0); CREATININE 1.94 mg/dL (0.7-1.3); TOTAL PROTEIN 7.7 g/dL (6.4-8.2)
[~2018-12-22] VITALS: Ht 188 cm; Wt 80.0 kg
[~2018-12-22 08:06] MED LIST changes: -FLUO20CA19 PO
[2018-12-22] MEDS ORDERED: SODIUM CHLORIDE 0.9% 1,000 ML IV SCH (08:15)
[2018-12-22] MEDS ORDERED: SODIUM CHLORIDE 0.9% 1,000 ML IV ONE (08:30)
[2018-12-22] MEDS ORDERED: FLUO20CA19 PO (08:44)
[2018-12-22] MEDS ORDERED: MIDAZOLAM 1 MG/ML, 2ML ONE (10:23)
[2018-12-22] MEDS ORDERED: FENTANYL PF 250 MCG/5ML ONE (10:24)
[2018-12-22] MEDS ORDERED: ROCURONIUM 10MG/ML,5ML ONE (10:26)
[2018-12-22] MEDS ORDERED: SUCCINYLCHOLINE 20 MG/ML, 10ML ONE (10:26)
[2018-12-22] MEDS ORDERED: PROPOFOL 10 MG/ML, 20ML ONE (10:26)
[2018-12-22] MEDS ORDERED: LIDOCAINE 2%, 20ML ONE (10:32)
[2018-12-22] MEDS ORDERED: ONDANSETRON 2MG/ML, 2ML ONE ×2 (10:54)
[2018-12-22] MEDS ORDERED: DEXAMETHASONE 4 MG/ML, 1ML ONE ×2 (10:54)
[2018-12-22] MEDS ORDERED: HEPARIN 1,000 UNITS/ML, 10ML ONE (12:03)
[2018-12-22] MEDS ORDERED: FENTANYL PF 100 MCG/2ML ONE (13:34)
[2018-12-22] MEDS ORDERED: APIXABAN 5 MG TABLET ONE (14:03)
[2018-12-22] MEDS ORDERED: MEPERIDINE/PF 25MG/0.5ML IVPush PRN (14:30)
[2018-12-22] MEDS ORDERED: MORPHINE SULFATE 4 MG/ML, 1ML IVPush PRN (14:30)
[2018-12-22] MEDS ORDERED: OXYcodone 5 MG/5 ML ORAL.SOL UDC PO PRN (14:30)
[2018-12-22] MEDS ORDERED: ONDANSETRON ODT 8 MG PO PRN (14:30)
[2018-12-22] MEDS ORDERED: HALOPERIDOL 5 MG/ML IV PRN (14:30)
[2018-12-22] MEDS ORDERED: HYDROmorphone 2 MG/ML, 1ML IVPush PRN (14:30)
[2018-12-22] MEDS ORDERED: ACETAMINOPHEN 325 MG TABLET PO PRN ×2 (14:30)
[2018-12-22] MEDS ORDERED: LABETALOL 5MG/ML, 20ML IV PRN (14:30)
[2018-12-22] MEDS ORDERED: ONDANSETRON 2MG/ML, 2ML IV PRN (14:30)
[2018-12-22] MEDS ORDERED: ALBUTEROL SULFATE 2.5 MG/3 ML NPPB PRN (14:30)
[2018-12-22] MEDS ORDERED: PROMETHAZINE 12.5 MG SUPP PR PRN (14:30)
[2018-12-22] MEDS ORDERED: MIDAZOLAM 1 MG/ML, 2ML IV PRN (14:30)
[2018-12-22] MEDS ORDERED: DIAZEPAM 5 MG/ML, 2ML IVPush PRN (14:30)
[2018-12-22] MEDS ORDERED: EPHEDRINE 50 MG/ML, 1ML IVPush PRN (14:30)
[2018-12-22] MEDS ORDERED: FENTANYL PF 100 MCG/2ML IV PRN (14:30)
[2018-12-22] MEDS ORDERED: hydrALAzine 20 MG/ML, 1ML IV PRN (14:30)
[2018-12-22] MEDS ORDERED: PROMETHAZINE 25 MG/ML, 1ML IV PRN (14:30)
[2018-12-22] MEDS: APIXABAN 5 MG TABLET PO SCH (14:45)
[2018-12-22 19:50] VITALS: BP 105/67
[2018-12-22] MEDS: DILTIAZEM 120 MG CAP.ER.12H PO SCH (19:51)
[2018-12-22] MEDS: METOPROLOL TARTRATE 25 MG TABLET PO SCH (19:52)
[2018-12-22] MEDS: GABAPENTIN 300 MG CAPSULE PO SCH (19:52)
[2018-12-22] MEDS ORDERED: APIXABAN 5 MG TABLET PO SCH (21:00)
[2018-12-22 23:47] VITALS: BP 129/70
[2018-12-23 02:28] VITALS: BP 97/61
[2018-12-23] MEDS ORDERED: LEVOTHYROXINE 50 MCG TABLET PO SCH (06:00)
[2018-12-23 07:20] VITALS: BP 101/69
[2018-12-23] MEDS ORDERED: FLUOXETINE HCL 20 MG CAPSULE PO SCH (09:00)
[2018-12-23] MEDS: DILTIAZEM 120 MG CAP.ER.12H PO SCH (09:10)
[2018-12-23] MEDS: APIXABAN 5 MG TABLET PO SCH (09:10)
[2018-12-23] MEDS: METOPROLOL TARTRATE 25 MG TABLET PO SCH (09:11)
[2018-12-23] MEDS: GABAPENTIN 300 MG CAPSULE PO SCH (09:11)
== END 2018-12-23 12:51 | disposition home or self-care (01) ==
LOC: CACL 08:06 → 5SO 14:08 → DCLOUNGE 12-23 12:38
PROVIDERS: ADMIT Internal Medicine Cardiovascular Disease; ATTEND Internal Medicine Cardiovascular Disease
DX: I48.0 Paroxysmal atrial fibrillation (principal); I48.4 Atypical atrial flutter; I10 Essential (primary) hypertension; M19.90 Unspecified osteoarthritis, unspecified site; Z79.01 Long term (current) use of anticoagulants; Z79.899 Other long term (current) drug therapy; Z85.528 Personal history of other malignant neoplasm of kidney; Z85.46 Personal history of malignant neoplasm of prostate; Z95.0 Presence of cardiac pacemaker
CPT/HCPCS: 36415; 71046; 80053; 85025; 85347; 93306; 93312; 93321; 93325; 93613; 93655; 93656; 93657; 93662; C1730; C1732; C1759; C1766; C1893; C1894; G0378; J0330; J1100; J1644; J2250; J2405; J2704; J3010; J3490; J7030

== ENCOUNTER 2019-01-05 13:43 | Outpatient (CLI) | payer MEDICARE, BC ==
[~2019-01-05 13:43] MED LIST changes: +FLUO20CA19 PO
== END 2019-01-05 23:59 | disposition home or self-care (01) ==
LOC: CFH 13:43
PROVIDERS: ATTEND Specialist
DX: C65.2 Malignant neoplasm of left renal pelvis (principal); Z85.46 Personal history of malignant neoplasm of prostate; N62 Hypertrophy of breast
CPT/HCPCS: 76642; 77066

== ENCOUNTER 2019-01-11 09:31 | Outpatient (CLI) | payer MEDICARE, BC ==
[2019-01-11] MEDS ORDERED: LIDOCAINE 1%-EPI 1:100K, 20ML ONE (10:00)
[2019-01-11] MEDS ORDERED: SODIUM BICARBONATE 4.0%, 5ML ONE (10:00)
[2019-01-11] MEDS ORDERED: LIDOCAINE 1%, 20ML ONE (10:00)
== END 2019-01-11 23:59 | disposition home or self-care (01) ==
LOC: CFH 09:31
PROVIDERS: ATTEND Specialist
DX: N62 Hypertrophy of breast (principal); Z85.46 Personal history of malignant neoplasm of prostate; Z85.53 Personal history of malignant neoplasm of renal pelvis; Z79.01 Long term (current) use of anticoagulants
CPT/HCPCS: 19083; 88305; J3490

== ENCOUNTER 2019-02-14 11:01 | Inpatient (IN) | payer MEDICARE, BC ==
[~2019-02-14] VITALS: Ht 188 cm; Wt 77.0 kg
[2019-02-16 13:20] VITALS: BP 109/79
== END 2019-02-16 16:40 | disposition home or self-care (01) | DRG 309 ==
LOC: ED 12:15 → EDIP 13:28 → SUATTDRO 13:58 → 5SO 15:28 → DCLOUNGE 02-16 16:25
PROVIDERS: ADMIT Internal Medicine; ATTEND Internal Medicine
PROC: 5A2204Z Restoration of Cardiac Rhythm, Single (ICD-10-PCS; principal; 2019-02-14)
PROC: 4B02XSZ Measurement of Cardiac Pacemaker, External Approach (ICD-10-PCS; 2019-02-15)
DX: I48.92 Unspecified atrial flutter (principal); C64.9 Malignant neoplasm of unspecified kidney, except renal pelvis; C77.9 Secondary and unspecified malignant neoplasm of lymph node, unspecified; G90.8 Other disorders of autonomic nervous system; D70.9 Neutropenia, unspecified; E03.9 Hypothyroidism, unspecified; I36.1 Nonrheumatic tricuspid (valve) insufficiency; I12.9 Hypertensive chronic kidney disease with stage 1 through stage 4 chronic kidney disease, or unspecified chronic kidney disease; I45.81 Long QT syndrome; I48.2 Chronic atrial fibrillation; N18.3 Chronic kidney disease, stage 3 (moderate); Z79.01 Long term (current) use of anticoagulants; Z80.52 Family history of malignant neoplasm of bladder; Z85.07 Personal history of malignant neoplasm of pancreas; Z85.46 Personal history of malignant neoplasm of prostate; Z85.51 Personal history of malignant neoplasm of bladder; Z87.891 Personal history of nicotine dependence; Z90.5 Acquired absence of kidney; Z90.79 Acquired absence of other genital organ(s); Z95.0 Presence of cardiac pacemaker; G62.9 Polyneuropathy, unspecified
CPT/HCPCS: 36415; 71045; 80053; 81003; 83735; 83880; 84100; 84443; 84484; 85025; 85610; 93005; 96361; 96374; 99152; G0378; J0282; J1160; J7030

== ENCOUNTER 2019-05-15 15:49 | Outpatient (CLI) | payer MEDICARE, BC ==
[~2019-05-15 15:49] MED LIST changes: +ACET500T64 PO; -ACET500T71 PO; +AMIO200T42 PO; +APIX2.5T PO; +CHEMO; +DILT120C48 PO; -DILT120C9 PO
[2019-05-15] MEDS ORDERED: AMIO200T42 PO (18:10)
[2019-05-15] MEDS ORDERED: MULT-316 PO (18:11)
== END 2019-05-15 23:59 | disposition home or self-care (01) ==
LOC: RAD 15:49
PROVIDERS: ATTEND Specialist
DX: Z02.9 Encounter for administrative examinations, unspecified (principal)

== ENCOUNTER 2019-05-15 16:17 | Inpatient (IN) | payer MEDICARE, BC ==
[~2019-05-15] VITALS: Ht 188 cm; Wt 85.0 kg
[2019-05-15] MEDS ORDERED: SODIUM CHLORIDE FLUSH 10ML SYR IVF ONE (16:30)
[2019-05-15] MEDS ORDERED: METOPROLOL 1 MG/ML, 5ML IVPush ONE ×2 (17:00→18:00)
[2019-05-15] MEDS ORDERED: LABETALOL 5MG/ML, 20ML ONE (17:11)
[2019-05-15 17:14] LABS: MEAN CORPUSCULAR HEMOGLOBIN 35.3 pg (27.5-34.5); MEAN CORPUSCULAR HGB CONC 32.8 g/dL (33.2-36.2); MEAN CORPUSCULAR VOLUME 107.8 fL (81-97); PLATELET COUNT 240 x10^3/uL (130-400); RED BLOOD COUNT 2.64 x10^6/uL (4.38-5.82); RED CELL DISTRIBUTION WIDTH 21.9 % (9.4-14.8)
[2019-05-15] MEDS ORDERED: METOPROLOL 1 MG/ML, 5ML ONE ×2 (17:14→18:00)
[2019-05-15 17:23] LABS: ALANINE AMINOTRANSFERASE 26 U/L (12-78); ALBUMIN 3.6 g/dL (3.4-5.0); ANION GAP 6 mmol/L (5-15); CALCIUM 8.5 mg/dL (8.5-10.1); CHLORIDE 103 mmol/L (98-107); CREATININE 2.14 mg/dL (0.7-1.3)
[2019-05-15 17:28] LABS: ALKALINE PHOSPHATASE 57 U/L (45-117); BILIRUBIN,TOTAL 0.5 mg/dL (0.2-1.0); TOTAL PROTEIN 7.2 g/dL (6.4-8.2); TROPONIN I 0.058 ng/mL (0.000-0.045)
[2019-05-15 17:38] LABS: MD YES
[2019-05-15 17:54] LABS: BAND#(MANUAL) 0.13 x10^3/uL; BANDS%(MANUAL) 3 % (0-7); BASOS#(MANUAL) 0.04 x10^3/uL (0-0.1); BASOS% (MANUAL) 1 % (0-1); EOS#(MANUAL) 0.13 x10^3/uL (0.0-0.4); EOS% (MANUAL) 3 % (1-7); LYMPH#(MANUAL) 0.86 x10^3/uL (1-3.4); LYMPHS% (MANUAL) 20 % (22-44); MONOS#(MANUAL) 0.73 x10^3/uL (0.3-2.7); MONOS% (MANUAL) 17 % (2-9); SEG#(MANUAL) 2.41 x10^3/uL (1.8-6.8); SEGS% (MANUAL) 56 % (42-75)
[2019-05-15 17:55] LABS: ANISOCYTOSIS 1+; POLYCHROMASIA 1+
[2019-05-15 17:56] LABS: SCHISTOCYTES 1+
[2019-05-15 18:03] LABS: <PLATELET ESTIMATE> ADEQUATE; <PLT MORPHOLOGY> NORMAL PLT MORPH
--- NOTE | 2019-05-15 18:06 | NUR ---
NOTIFIED DR. SOLORIO THAT PATIENT'S HEART RATE REMAINS AT 115 BPM AFTER METOPROLOL. ANOTHER 5MG ORDERED AND GIVEN.
[2019-05-15] MEDS ORDERED: AMIO200T42 PO (18:10)
[2019-05-15] MEDS ORDERED: MULT-316 PO (18:11)
--- NOTE | 2019-05-15 18:11 | NUR ---
DINNER TRAY ORDERED APPROVED BY DR. SOLORIO. PT RESTING WITH NO COMPLAINTS.
--- NOTE | 2019-05-15 18:30 | NUR ---
DINNER TRAY SERVED TO PATIENT.
--- NOTE | 2019-05-15 18:56 | NUR ---
SBAR HAND-OFF REPORT TO ROBBY HENDRICKS.
[2019-05-15] MEDS ORDERED: ONDANSETRON ODT 4 MG PO PRN (19:30)
[2019-05-15] MEDS ORDERED: BISACODYL 10 MG SUPP PR PRN (19:30)
[2019-05-15] MEDS ORDERED: ACETAMINOPHEN 325 MG TABLET PO PRN (19:30)
[2019-05-15] MEDS ORDERED: POLYETHYLENE GLYCOL 17 GM PACKET PO PRN (19:30)
[2019-05-15] MEDS ORDERED: FUROSEMIDE 20 MG/2 ML IV ONE (19:30)
[2019-05-15 20:00] VITALS: BP 135/86
[2019-05-15] MEDS ORDERED: AMIODARONE 200 MG TABLET PO SCH (21:00)
[2019-05-15] MEDS: SODIUM CHLORIDE FLUSH 10ML SYR IVF SCH (21:23)
[2019-05-15] MEDS: APIXABAN 2.5 MG TABLET PO SCH (21:23)
[2019-05-15] MEDS: METOPROLOL TARTRATE 50 MG TABLET PO SCH (21:23)
[2019-05-15] MEDS: GABAPENTIN 300 MG CAPSULE PO SCH (21:23)
[2019-05-15 23:23] LABS: TROPONIN I 0.049 ng/mL (0.000-0.045)
[2019-05-16] VITALS (8 sets, daily range): BP systolic 78–115; BP diastolic 53–83
[2019-05-16 05:30] LABS: MEAN CORPUSCULAR HEMOGLOBIN 36.2 pg (27.5-34.5); MEAN CORPUSCULAR HGB CONC 33.8 g/dL (33.2-36.2); MEAN CORPUSCULAR VOLUME 107.2 fL (81-97); MEAN PLATELET VOLUME 7.8 fL (7.4-10.4); PLATELET COUNT 249 x10^3/uL (130-400); RED BLOOD COUNT 2.45 x10^6/uL (4.38-5.82); RED CELL DISTRIBUTION WIDTH 21.2 % (9.4-14.8)
[2019-05-16 05:38] LABS: ALBUMIN 2.9 g/dL (3.4-5.0); ANION GAP 6 mmol/L (5-15); CALCIUM 8.3 mg/dL (8.5-10.1); CHLORIDE 104 mmol/L (98-107)
[2019-05-16 05:45] LABS: MD YES
[2019-05-16 05:45] LABS: ALANINE AMINOTRANSFERASE 23 U/L (12-78); ALKALINE PHOSPHATASE 45 U/L (45-117); BILIRUBIN,TOTAL 0.7 mg/dL (0.2-1.0); CREATININE 2.02 mg/dL (0.7-1.3); TOTAL PROTEIN 6.3 g/dL (6.4-8.2); TROPONIN I 0.045 ng/mL (0.000-0.045)
[2019-05-16 05:48] LABS: ANISOCYTOSIS 1+; EOS#(MANUAL) 0.07 x10^3/uL (0.0-0.4); EOS% (MANUAL) 2 % (1-7); LYMPH#(MANUAL) 1.06 x10^3/uL (1-3.4); LYMPHS% (MANUAL) 32 % (22-44); MONOS#(MANUAL) 0.86 x10^3/uL (0.3-2.7); MONOS% (MANUAL) 26 % (2-9); SEG#(MANUAL) 1.32 x10^3/uL (1.8-6.8); SEGS% (MANUAL) 40 % (42-75)
[2019-05-16 05:49] LABS: <PLATELET ESTIMATE> ADEQUATE; <PLT MORPHOLOGY> NORMAL PLT MORPH; POLYCHROMASIA 1+
[2019-05-16] MEDS: SENNA/DOCUSATE TABLET PO SCH (09:00)
[2019-05-16] MEDS: FUROSEMIDE 20 MG/2 ML IV SCH ×2 (09:02→17:36)
[2019-05-16] MEDS: MULTIVITAMIN 1 TABLET PO SCH (09:08)
[2019-05-16] MEDS: APIXABAN 2.5 MG TABLET PO SCH ×2 (09:08→21:33)
[2019-05-16] MEDS: GABAPENTIN 300 MG CAPSULE PO SCH ×3 (09:08→21:33)
[2019-05-16] MEDS: METOPROLOL TARTRATE 50 MG TABLET PO SCH ×2 (09:08→21:33)
[2019-05-16] MEDS: LEVOTHYROXINE 50 MCG TABLET PO SCH (09:08)
[2019-05-16] MEDS: SODIUM CHLORIDE FLUSH 10ML SYR IVF SCH ×2 (09:09→21:34)
[2019-05-16] MEDS ORDERED: AMIODARONE 200 MG TABLET PO SCH (10:00)
[2019-05-16] MEDS: AMIODARONE 200 MG TABLET PO SCH (21:33)
[2019-05-17] VITALS (7 sets, daily range): BP systolic 84–109; BP diastolic 55–71
[2019-05-17 05:49] LABS: ANION GAP 7 mmol/L (5-15); CHLORIDE 102 mmol/L (98-107); MEAN CORPUSCULAR HEMOGLOBIN 35.6 pg (27.5-34.5); MEAN CORPUSCULAR VOLUME 107.9 fL (81-97); MEAN PLATELET VOLUME 7.8 fL (7.4-10.4); PLATELET COUNT 340 x10^3/uL (130-400); RED BLOOD COUNT 2.65 x10^6/uL (4.38-5.82)
[2019-05-17 05:53] LABS: CHOLESTEROL, TOTAL 122 mg/dL (140-239); CREATININE 2.38 mg/dL (0.7-1.3); HDL CHOL % 51 % (26-37); HDL CHOLESTEROL (DIRECT) 62 mg/dL (40-60); LDL CHOLESTEROL,CALCULATED 48 mg/dL (54-169); LDL/HDL RATIO 0.8 (0.5-3.0); TRIGLYCERIDES 60 mg/dL (50-200); VLDL CHOLESTEROL 12 mg/dL (0-25)
[2019-05-17 06:16] LABS: MD YES
[2019-05-17 06:19] LABS: EOS#(MANUAL) 0.09 x10^3/uL (0.0-0.4); EOS% (MANUAL) 3 % (1-7); LYMPH#(MANUAL) 1.27 x10^3/uL (1-3.4); LYMPHS% (MANUAL) 41 % (22-44); MONOS% (MANUAL) 21 % (2-9); REACTIVE LYMPHS # (MANUAL) 0.06 x10^3/uL (0-0); REACTIVE LYMPHS % (MANUAL) 2 % (0-0); SEG#(MANUAL) 1.02 x10^3/uL (1.8-6.8); SEGS% (MANUAL) 33 % (42-75)
[2019-05-17 06:20] LABS: MONOS#(MANUAL) 0.65 x10^3/uL (0.3-2.7)
[2019-05-17 06:21] LABS: ANISOCYTOSIS 1+; OVALOCYTES 1+; POLYCHROMASIA 1+
[2019-05-17 06:22] LABS: <PLATELET ESTIMATE> ADEQUATE; <PLT MORPHOLOGY> NORMAL PLT MORPH; SCHISTOCYTES 1+
[2019-05-17] MEDS: METOPROLOL TARTRATE 50 MG TABLET PO SCH (09:08)
[2019-05-17] MEDS: AMIODARONE 200 MG TABLET PO SCH (09:09)
[2019-05-17] MEDS: GABAPENTIN 300 MG CAPSULE PO SCH ×3 (09:09→20:19)
[2019-05-17] MEDS: APIXABAN 2.5 MG TABLET PO SCH ×2 (09:09→20:19)
[2019-05-17] MEDS: MULTIVITAMIN 1 TABLET PO SCH (09:09)
[2019-05-17] MEDS: SODIUM CHLORIDE FLUSH 10ML SYR IVF SCH ×2 (09:10→20:20)
[2019-05-17] MEDS: SENNA/DOCUSATE TABLET PO SCH (09:10)
[2019-05-17] MEDS: LEVOTHYROXINE 50 MCG TABLET PO SCH (09:10)
[2019-05-17] MEDS ORDERED: DIGOXIN 0.25 MG/ML, 2ML IVPush ONE ×2 (11:00→11:30)
[2019-05-17] MEDS ORDERED: AMIODARONE 900 MG in DEXTROSE 5% 482 ML IV PRN (12:00)
[2019-05-17] MEDS ORDERED: AMIODARONE 150 MG in DEXTROSE 5% 100 ML IV ONE (12:00)
[2019-05-17] MEDS ORDERED: FILTER 0.22 MICRON IV PRN (12:00)
[2019-05-17] MEDS: METOPROLOL TARTRATE 25 MG TABLET PO SCH (17:44)
[2019-05-17] MEDS ORDERED: DIPHENHYDRAMINE 25 MG CAPSULE PO PRN (20:00)
[2019-05-17] MEDS ORDERED: METOPROLOL TARTRATE 50 MG TABLET PO SCH (21:00)
[2019-05-18 01:16] VITALS: BP 120/72
[2019-05-18] MEDS: METOPROLOL TARTRATE 25 MG TABLET PO SCH (05:35)
[2019-05-18 06:01] LABS: MEAN CORPUSCULAR HEMOGLOBIN 35.3 pg (27.5-34.5); MEAN CORPUSCULAR HGB CONC 32.7 g/dL (33.2-36.2); MEAN PLATELET VOLUME 7.6 fL (7.4-10.4); PLATELET COUNT 420 x10^3/uL (130-400); RED BLOOD COUNT 2.67 x10^6/uL (4.38-5.82); RED CELL DISTRIBUTION WIDTH 21.1 % (9.4-14.8)
[2019-05-18 06:08] LABS: ANION GAP 6 mmol/L (5-15); CALCIUM 8.3 mg/dL (8.5-10.1); CHLORIDE 104 mmol/L (98-107); CREATININE 2.17 mg/dL (0.7-1.3)
[2019-05-18 06:21] LABS: MD YES
[2019-05-18 06:27] LABS: ANISOCYTOSIS 1+; BAND#(MANUAL) 0.03 x10^3/uL; BANDS%(MANUAL) 1 % (0-7); BASOS#(MANUAL) 0.06 x10^3/uL (0-0.1); BASOS% (MANUAL) 2 % (0-1); EOS#(MANUAL) 0.25 x10^3/uL (0.0-0.4); EOS% (MANUAL) 8 % (1-7); LYMPH#(MANUAL) 1.02 x10^3/uL (1-3.4); LYMPHS% (MANUAL) 33 % (22-44); MONOS#(MANUAL) 0.53 x10^3/uL (0.3-2.7); MONOS% (MANUAL) 17 % (2-9); MYELOCYTES# (MANUAL) 0.03 x10^3/uL (0-0); MYELOCYTES% (MANUAL) 1 % (0-0); SEG#(MANUAL) 1.18 x10^3/uL (1.8-6.8); SEGS% (MANUAL) 38 % (42-75)
[2019-05-18 06:28] LABS: <PLATELET ESTIMATE> INCREASED; <PLT MORPHOLOGY> NORMAL PLT MORPH; OVALOCYTES 1+; POLYCHROMASIA 1+
[2019-05-18 07:29] VITALS: BP 112/81
[2019-05-18] MEDS: MULTIVITAMIN 1 TABLET PO SCH (08:12)
[2019-05-18] MEDS: LEVOTHYROXINE 50 MCG TABLET PO SCH (08:12)
[2019-05-18] MEDS: GABAPENTIN 300 MG CAPSULE PO SCH (08:13)
[2019-05-18] MEDS: SODIUM CHLORIDE FLUSH 10ML SYR IVF SCH (08:13)
[2019-05-18] MEDS: SENNA/DOCUSATE TABLET PO SCH (08:13)
[2019-05-18] MEDS: APIXABAN 2.5 MG TABLET PO SCH (08:13)
[2019-05-18] MEDS ORDERED: AMIODARONE 200 MG TABLET PO SCH (10:00)
[2019-05-18] MEDS ORDERED: FURO-93 PO (10:19)
[2019-05-18] MEDS ORDERED: METO25TA35 PO (10:19)
[2019-05-18] MEDS ORDERED: AMIO200T42 PO (10:19)
== END 2019-05-18 12:39 | disposition home or self-care (01) | DRG 280 ==
LOC: ED 17:19 → EDIP 18:28 → 5SO 19:49 → DCLOUNGE 05-18 12:28
PROVIDERS: ADMIT Family Medicine; ATTEND Family Medicine
DX: I13.0 Hypertensive heart and chronic kidney disease with heart failure and stage 1 through stage 4 chronic kidney disease, or unspecified chronic kidney disease (principal); I50.33 Acute on chronic diastolic (congestive) heart failure; I21.A1 Myocardial infarction type 2; J96.00 Acute respiratory failure, unspecified whether with hypoxia or hypercapnia; D68.69 Other thrombophilia; C64.9 Malignant neoplasm of unspecified kidney, except renal pelvis; I48.92 Unspecified atrial flutter; D53.9 Nutritional anemia, unspecified; E03.9 Hypothyroidism, unspecified; G62.9 Polyneuropathy, unspecified; G89.29 Other chronic pain; I08.1 Rheumatic disorders of both mitral and tricuspid valves; I48.0 Paroxysmal atrial fibrillation; N18.3 Chronic kidney disease, stage 3 (moderate); Z79.01 Long term (current) use of anticoagulants; Z80.52 Family history of malignant neoplasm of bladder; Z85.46 Personal history of malignant neoplasm of prostate; Z87.891 Personal history of nicotine dependence; Z90.5 Acquired absence of kidney; Z92.21 Personal history of antineoplastic chemotherapy; Z95.0 Presence of cardiac pacemaker
CPT/HCPCS: 36415; 71045; 78582; 80048; 80053; 80061; 82607; 83735; 83880; 84443; 84484; 85025; 93005; 93306; 96374; 96375; 99284; 99291; G0378; A9540; A9558; J0282; J1160; J1940; J7060

== ENCOUNTER → 2019-06-20 | Outpatient (CLI) | payer MEDICARE, BC ==
[~2019-06-20] MED LIST changes: +FURO-93 PO; +MULT-316 PO; +OXYC-302 PO; +OXYC5CAP2 PO; +TRAZ-137 PO
[2019-06-20 14:26] LABS: BASOPHILS # (AUTO) 0.03 x10^3/uL (0-0.1); BASOPHILS % (AUTO) 1 % (0-1); EOSINOPHILS # (AUTO) 0.31 x10^3/uL (0-0.4); EOSINOPHILS % (AUTO) 6 % (1-7); LYMPHOCYTES # (AUTO) 0.75 x10^3/uL (1-3.4); LYMPHOCYTES % (AUTO) 13 % (22-44); MD NO; MEAN CORPUSCULAR HEMOGLOBIN 34.2 pg (27.5-34.5); MEAN CORPUSCULAR HGB CONC 32.4 g/dL (33.2-36.2); MEAN CORPUSCULAR VOLUME 105.3 fL (81-97); MEAN PLATELET VOLUME 7.9 fL (7.4-10.4); MONOCYTES # (AUTO) 0.64 x10^3/uL (0.2-0.8); MONOCYTES % (AUTO) 11 % (2-9); NEUTROPHILS # (AUTO) 3.92 x10^3/uL (1.8-6.8); NEUTROPHILS % (AUTO) 70 % (42-75); PLATELET COUNT 258 x10^3/uL (130-400); RED BLOOD COUNT 3.76 x10^6/uL (4.38-5.82); RED CELL DISTRIBUTION WIDTH 17.6 % (9.4-14.8)
[2019-06-20 14:31] LABS: ALANINE AMINOTRANSFERASE 43 U/L (12-78); ALBUMIN 3.8 g/dL (3.4-5.0); ANION GAP 6 mmol/L (5-15); CHLORIDE 101 mmol/L (98-107); CREATININE 2.31 mg/dL (0.7-1.3)
[2019-06-20 14:34] LABS: ALKALINE PHOSPHATASE 59 U/L (45-117); BILIRUBIN,TOTAL 0.5 mg/dL (0.2-1.0); TOTAL PROTEIN 7.6 g/dL (6.4-8.2)
== END | disposition home or self-care (01) ==
LOC: RAD 14:04
PROVIDERS: ATTEND Radiology Radiation Oncology
CPT/HCPCS: 36415; 71250; 74176; 80053; 85025; 93970

== ENCOUNTER 2019-07-02 07:31 | Day surgery (SDC) | payer MEDICARE, BC ==
[~2019-07-02] VITALS: Ht 188 cm; Wt 85.0 kg
[2019-07-02] MEDS ORDERED: SODIUM CHLORIDE 0.9% 1,000 ML IV SCH (08:00)
[2019-07-02 08:20] VITALS: BP 136/93
[2019-07-02] MEDS ORDERED: PLEASE ENTER HEIGHT AND WEIGHT MC SCH (08:30)
[2019-07-02 08:54] LABS: INTERNATIONAL NORMALIZED RATIO 0.99 (0.93-1.1); PROTHROMBIN TIME 10.4 Seconds (9.6-11.5)
[2019-07-02] MEDS ORDERED: FENTANYL PF 100 MCG/2ML ONE (10:40)
[2019-07-02] MEDS ORDERED: MIDAZOLAM 1 MG/ML, 5ML ONE (10:40)
[2019-07-02] MEDS ORDERED: FLUMAZENIL 0.1 MG/1 ML, 5ML ONE (10:40)
[2019-07-02] MEDS ORDERED: NALOXONE 1 MG/ML, 2ML ONE (11:03)
== END 2019-07-02 12:30 | disposition home or self-care (01) ==
LOC: OUT 07:31
PROVIDERS: ATTEND Radiology Radiation Oncology
DX: R16.0 Hepatomegaly, not elsewhere classified (principal); K75.9 Inflammatory liver disease, unspecified; C66.2 Malignant neoplasm of left ureter; I48.91 Unspecified atrial fibrillation; I10 Essential (primary) hypertension; Z79.890 Hormone replacement therapy; Z79.01 Long term (current) use of anticoagulants; Z79.899 Other long term (current) drug therapy; Z85.528 Personal history of other malignant neoplasm of kidney; Z90.5 Acquired absence of kidney; Z95.0 Presence of cardiac pacemaker
CPT/HCPCS: 36415; 47000; 77012; 85610; 88307; 99156; 99157; J2250; J3010; J7030; 88313; 88341; 88342; J2310

== ENCOUNTER 2019-08-22 11:10 | Inpatient (IN) | payer MEDICARE, BC ==
[~2019-08-22] VITALS: Ht 188 cm; Wt 92.6 kg
[~2019-08-22 11:10] MED LIST changes: +AMIO200T7 PO; +CBD Oil TD; +LACT10SO24 PO; +MEGE40TA3 PO; -TRAZ-137 PO; +TRAZ-175 PO; +[UNRECOGNIZED DRUG - CODE] PO
--- NOTE | 2019-08-22 12:00 | NUR ---
PT TO ROOM FROM LOBBY. PT TO BR, FAMILY AT BS.
[2019-08-22] MEDS ORDERED: SODIUM CHLORIDE FLUSH 10ML SYR IVF ONE (13:30)
[2019-08-22] MEDS ORDERED: SODIUM CHLORIDE 0.9% 1,000ML IVBOLUS ONE (13:30)
--- NOTE | 2019-08-22 13:57 | NUR ---
IV PLACED, LABS DRAWN WITH START. IV NS BOLUS INFUSING. DR LEE IN TO UPDATE PT AND . CALL LIGHT WITHIN REACH.
[2019-08-22 14:22] LABS: BASOPHILS # (AUTO) 0.01 x10^3/uL (0-0.1); BASOPHILS % (AUTO) 0 % (0-1); EOSINOPHILS # (AUTO) 0.11 x10^3/uL (0-0.4); EOSINOPHILS % (AUTO) 1 % (1-7); LYMPHOCYTES # (AUTO) 0.39 x10^3/uL (1-3.4); LYMPHOCYTES % (AUTO) 4 % (22-44); MD NO; MEAN CORPUSCULAR HEMOGLOBIN 30.6 pg (27.5-34.5); MEAN CORPUSCULAR HGB CONC 32.6 g/dL (33.2-36.2); MEAN CORPUSCULAR VOLUME 93.8 fL (81-97); MEAN PLATELET VOLUME 7.9 fL (7.4-10.4); MONOCYTES # (AUTO) 1.18 x10^3/uL (0.2-0.8); MONOCYTES % (AUTO) 10 % (2-9); NEUTROPHILS # (AUTO) 9.66 x10^3/uL (1.8-6.8); NEUTROPHILS % (AUTO) 85 % (42-75); PLATELET COUNT 276 x10^3/uL (130-400); RED BLOOD COUNT 3.49 x10^6/uL (4.38-5.82); RED CELL DISTRIBUTION WIDTH 16.1 % (9.4-14.8)
[2019-08-22 14:30] LABS: ALANINE AMINOTRANSFERASE 43 U/L (12-78); ALBUMIN 2.1 g/dL (3.4-5.0); ANION GAP 10 mmol/L (5-15); CALCIUM 8.9 mg/dL (8.5-10.1); CHLORIDE 97 mmol/L (98-107); CREATININE 1.38 mg/dL (0.7-1.3)
[2019-08-22 14:33] LABS: ALKALINE PHOSPHATASE 178 U/L (45-117); TOTAL PROTEIN 5.8 g/dL (6.4-8.2)
--- NOTE | 2019-08-22 15:06 | NUR ---
PT SLEEPING, NAD. VSS UPDATED IN COMPUTER. PT FOR RECHECK.
--- NOTE | 2019-08-22 15:19 | NUR ---
DR LEE IN TO DISCUSS POC WITH PT AND FAMILY.
--- NOTE | 2019-08-22 16:01 | NUR ---
BREAK RN: PT UPRIGHT ON GURNEY WITH EYES CLOSED, RESTING COMFORTABLE ON GURNEY, RESPONDS APPROP TO STAFF, NAD AT REST, NO NEEDS AT THIS TIME, AT BS, CALL LIGHT WITHIN REACH.
[2019-08-22] MEDS ORDERED: ONDANSETRON ODT 4 MG PO PRN (16:30)
[2019-08-22] MEDS ORDERED: ACETAMINOPHEN 325 MG TABLET PO PRN (16:30)
[2019-08-22] MEDS ORDERED: [UNRECOGNIZED DRUG - OTHER] HOMEMEDPO PRN (16:30)
[2019-08-22] MEDS ORDERED: ONDANSETRON 2MG/ML, 2ML IVPush PRN (16:30)
[2019-08-22] MEDS ORDERED: hydrALAzine 20 MG/ML, 1ML IVPush PRN (16:30)
[2019-08-22] MEDS ORDERED: LACTULOSE 10 GM/15 ML UDC PO PRN (16:30)
[2019-08-22] MEDS ORDERED: OXYcodone IR 5MG TABLET PO PRN (16:30)
--- NOTE | 2019-08-22 16:49 | NUR ---
ADMIT ORDER IN PLACE. AWAITING ROOM AVAILABILITY. AT BS.
[2019-08-22] MEDS ORDERED: FUROSEMIDE 40 MG/4 ML IV ONE (17:30)
--- NOTE | 2019-08-22 17:36 | NUR ---
PT ASKING FOR MEAL, MEAL TRAY ORDERED. HOSPITAL BED ORDERED FROM HOUSEKEEPING. US AT BS.
--- NOTE | 2019-08-22 18:16 | NUR ---
MEAL TRAY PROVIDED, PT SITTING UP IN BED. CALL LIGHT WITHIN REACH.
[2019-08-22] MEDS ORDERED: POTASSIUM CHLORIDE 20 MEQ TAB.ER.PRT PO ONE (18:30)
[2019-08-22] MEDS ORDERED: POTASSIUM CHLORIDE 20 MEQ TAB.ER.PRT ONE (19:27)
[2019-08-22] MEDS ORDERED: FUROSEMIDE 20 MG/2 ML ONE (19:27)
[2019-08-22 20:00] VITALS: BP 125/82
[2019-08-22 20:01] VITALS: BP 111/70
[2019-08-22 20:02] VITALS: BP 103/71
[2019-08-22] MEDS: morphine SULFATE 10 MG/ML, 1ML IVPush PRN (20:37)
[2019-08-22] MEDS: AMIODARONE 200 MG TABLET PO SCH (21:03)
[2019-08-22] MEDS: APIXABAN 2.5 MG TABLET PO SCH (21:03)
[2019-08-22] MEDS: GABAPENTIN 300 MG CAPSULE PO SCH (21:03)
[2019-08-22] MEDS: MEGESTROL 40MG TABLET PO SCH (21:03)
[2019-08-22 21:15] VITALS: BP 125/82
[2019-08-22] MEDS ORDERED: TRAZODONE 50MG TABLET ONE (23:12)
[2019-08-22] MEDS: TRAZODONE 50MG TABLET PO PRN (23:16)
[2019-08-23 01:37] VITALS: BP 123/86
[2019-08-23] MEDS ORDERED: METOPROLOL TARTRATE 25 MG TAB ONE (04:09)
[2019-08-23] MEDS: METOPROLOL TARTRATE 25 MG TAB PO SCH (04:10)
[2019-08-23] MEDS: MEGESTROL 40MG TABLET PO SCH ×4 (05:38→20:17)
[2019-08-23 06:53] VITALS: BP 109/75
[2019-08-23 07:05] LABS: BASOPHILS # (AUTO) 0.01 x10^3/uL (0-0.1); BASOPHILS % (AUTO) 0 % (0-1); EOSINOPHILS # (AUTO) 0.12 x10^3/uL (0-0.4); EOSINOPHILS % (AUTO) 1 % (1-7); LYMPHOCYTES # (AUTO) 0.32 x10^3/uL (1-3.4); LYMPHOCYTES % (AUTO) 3 % (22-44); MD NO; MEAN CORPUSCULAR HEMOGLOBIN 30.6 pg (27.5-34.5); MEAN CORPUSCULAR HGB CONC 32.5 g/dL (33.2-36.2); MEAN CORPUSCULAR VOLUME 94.3 fL (81-97); MONOCYTES # (AUTO) 1.14 x10^3/uL (0.2-0.8); MONOCYTES % (AUTO) 12 % (2-9); NEUTROPHILS # (AUTO) 8.28 x10^3/uL (1.8-6.8); NEUTROPHILS % (AUTO) 84 % (42-75); PLATELET COUNT 280 x10^3/uL (130-400); RED BLOOD COUNT 3.44 x10^6/uL (4.38-5.82); RED CELL DISTRIBUTION WIDTH 16.2 % (9.4-14.8)
[2019-08-23 07:15] LABS: ANION GAP 8 mmol/L (5-15); CALCIUM 9.1 mg/dL (8.5-10.1); CHLORIDE 99 mmol/L (98-107)
[2019-08-23 07:27] LABS: CREATININE 1.34 mg/dL (0.7-1.3)
[2019-08-23] MEDS: GABAPENTIN 300 MG CAPSULE PO SCH ×3 (07:34→20:17)
[2019-08-23] MEDS: LEVOTHYROXINE 50 MCG TABLET PO SCH (07:34)
[2019-08-23] MEDS: APIXABAN 2.5 MG TABLET PO SCH ×2 (07:34→20:17)
[2019-08-23] MEDS ORDERED: METOPROLOL 1 MG/ML, 5ML IVPush ONE (09:30)
[2019-08-23 13:05] VITALS: BP 100/70
[2019-08-23] MEDS: morphine SULFATE 10 MG/ML, 1ML IVPush PRN (15:35)
[2019-08-23] MEDS: AMIODARONE 200 MG TABLET PO SCH (20:17)
[2019-08-23 21:09] VITALS: BP 100/65
[2019-08-24] VITALS (7 sets, daily range): BP systolic 83–116; BP diastolic 56–78
[2019-08-24] MEDS: MEGESTROL 40MG TABLET PO SCH ×4 (06:11→21:10)
[2019-08-24] MEDS: morphine SULFATE 10 MG/ML, 1ML IVPush PRN ×3 (06:12→16:40)
[2019-08-24 06:20] LABS: BASOPHILS % (AUTO) 0 % (0-1); EOSINOPHILS # (AUTO) 0.05 x10^3/uL (0-0.4); EOSINOPHILS % (AUTO) 1 % (1-7); LYMPHOCYTES # (AUTO) 0.43 x10^3/uL (1-3.4); LYMPHOCYTES % (AUTO) 4 % (22-44); MD NO; MEAN CORPUSCULAR HEMOGLOBIN 30.8 pg (27.5-34.5); MEAN CORPUSCULAR VOLUME 93.2 fL (81-97); MEAN PLATELET VOLUME 8.4 fL (7.4-10.4); MONOCYTES # (AUTO) 1.04 x10^3/uL (0.2-0.8); MONOCYTES % (AUTO) 10 % (2-9); NEUTROPHILS # (AUTO) 8.46 x10^3/uL (1.8-6.8); NEUTROPHILS % (AUTO) 85 % (42-75); PLATELET COUNT 266 x10^3/uL (130-400); RED BLOOD COUNT 3.25 x10^6/uL (4.38-5.82)
[2019-08-24 06:36] LABS: ANION GAP 9 mmol/L (5-15); CALCIUM 9.4 mg/dL (8.5-10.1); CHLORIDE 98 mmol/L (98-107)
[2019-08-24 06:37] LABS: CREATININE 1.47 mg/dL (0.7-1.3)
[2019-08-24] MEDS ORDERED: POTASSIUM CHLORIDE 40 MEQ in SODIUM CHLORIDE 0.9% 500 ML IV ONE (08:00)
[2019-08-24] MEDS: METOPROLOL TARTRATE 25 MG TAB PO SCH (08:53)
[2019-08-24] MEDS: APIXABAN 2.5 MG TABLET PO SCH ×2 (08:53→21:10)
[2019-08-24] MEDS: GABAPENTIN 300 MG CAPSULE PO SCH ×3 (08:53→21:10)
[2019-08-24] MEDS: LEVOTHYROXINE 50 MCG TABLET PO SCH (08:53)
[2019-08-24] MEDS: AMIODARONE 200 MG TABLET PO SCH (21:10)
[2019-08-25 01:06] VITALS: BP 106/62
[2019-08-25] MEDS: MEGESTROL 40MG TABLET PO SCH ×4 (05:12→22:23)
[2019-08-25 05:30] LABS: INTERNATIONAL NORMALIZED RATIO 1.21 (0.93-1.1); PROTHROMBIN TIME 12.9 Seconds (9.6-11.5)
[2019-08-25 05:36] LABS: ALBUMIN 1.8 g/dL (3.4-5.0); ANION GAP 6 mmol/L (5-15); CALCIUM 9.5 mg/dL (8.5-10.1); CHLORIDE 102 mmol/L (98-107)
[2019-08-25 05:40] LABS: ALANINE AMINOTRANSFERASE 44 U/L (12-78); ALKALINE PHOSPHATASE 217 U/L (45-117); BILIRUBIN,TOTAL 1.1 mg/dL (0.2-1.0); CREATININE 1.44 mg/dL (0.7-1.3); TOTAL PROTEIN 5.4 g/dL (6.4-8.2)
[2019-08-25 07:56] VITALS: BP 113/67
[2019-08-25] MEDS: LEVOTHYROXINE 50 MCG TABLET PO SCH (10:26)
[2019-08-25] MEDS: METOPROLOL TARTRATE 25 MG TAB PO SCH (10:26)
[2019-08-25] MEDS: APIXABAN 2.5 MG TABLET PO SCH ×2 (10:26→22:23)
[2019-08-25] MEDS: GABAPENTIN 300 MG CAPSULE PO SCH ×3 (10:26→22:23)
[2019-08-25] MEDS: morphine SULFATE 10 MG/ML, 1ML IVPush PRN ×2 (10:33→22:23)
[2019-08-25 13:20] VITALS: BP 100/65
[2019-08-25] MEDS ORDERED: PHARMACY MAY ADJ FOR RENAL FX MC PRN (18:30)
[2019-08-25] MEDS: SPIRONOLACTONE 25 MG TABLET PO SCH (18:34)
[2019-08-25 20:34] VITALS: BP 124/81
[2019-08-25] MEDS: AMIODARONE 200 MG TABLET PO SCH (22:24)
[2019-08-26 01:03] VITALS: BP 103/70
[2019-08-26 05:48] LABS: ALBUMIN 1.8 g/dL (3.4-5.0); ANION GAP 8 mmol/L (5-15); CALCIUM 10.3 mg/dL (8.5-10.1); CHLORIDE 101 mmol/L (98-107)
[2019-08-26 05:52] LABS: ALANINE AMINOTRANSFERASE 52 U/L (12-78); ALKALINE PHOSPHATASE 228 U/L (45-117); BILIRUBIN,TOTAL 1.2 mg/dL (0.2-1.0); CREATININE 1.44 mg/dL (0.7-1.3); TOTAL PROTEIN 5.6 g/dL (6.4-8.2)
[2019-08-26] MEDS: MEGESTROL 40MG TABLET PO SCH ×4 (06:22→20:50)
[2019-08-26] MEDS: morphine SULFATE 10 MG/ML, 1ML IVPush PRN ×3 (06:22→15:51)
[2019-08-26 07:18] VITALS: BP 116/83
[2019-08-26] MEDS: METOPROLOL TARTRATE 25 MG TAB PO SCH (09:45)
[2019-08-26] MEDS: APIXABAN 2.5 MG TABLET PO SCH ×2 (09:45→20:50)
[2019-08-26] MEDS: SPIRONOLACTONE 25 MG TABLET PO SCH (09:45)
[2019-08-26] MEDS: GABAPENTIN 300 MG CAPSULE PO SCH ×3 (09:45→20:50)
[2019-08-26] MEDS: LEVOTHYROXINE 50 MCG TABLET PO SCH (09:45)
[2019-08-26 13:25] VITALS: BP 156/82
[2019-08-26 18:53] VITALS: BP 96/58
[2019-08-26] MEDS: AMIODARONE 200 MG TABLET PO SCH (20:49)
[2019-08-26] MEDS: TRAZODONE 50MG TABLET PO PRN (20:55)
[2019-08-27 02:00] VITALS: BP 102/79
[2019-08-27 06:35] VITALS: BP 124/73
[2019-08-27] MEDS ORDERED: METO25TA35 PO (08:20)
[2019-08-27] MEDS: MEGESTROL 40MG TABLET PO SCH ×2 (08:32→11:00)
[2019-08-27] MEDS: GABAPENTIN 300 MG CAPSULE PO SCH (08:33)
[2019-08-27] MEDS: APIXABAN 2.5 MG TABLET PO SCH (08:33)
[2019-08-27] MEDS: LEVOTHYROXINE 50 MCG TABLET PO SCH (08:33)
[2019-08-27] MEDS: SPIRONOLACTONE 25 MG TABLET PO SCH (08:33)
[2019-08-27] MEDS ORDERED: METOPROLOL TARTRATE 25 MG TAB PO SCH (09:00)
[2019-08-27 12:02] VITALS: BP 106/67
== END 2019-08-27 13:48 | disposition hospice, home (50) | DRG 947 ==
LOC: ED 13:05 → EDIP 16:29 → 4EST 20:14
PROVIDERS: ADMIT Hospitalist; ATTEND Hospitalist
DX: R60.1 Generalized edema (principal); R53.2 Functional quadriplegia; C78.7 Secondary malignant neoplasm of liver and intrahepatic bile duct; R65.10 Systemic inflammatory response syndrome (SIRS) of non-infectious origin without acute organ dysfunction; D68.69 Other thrombophilia; C64.9 Malignant neoplasm of unspecified kidney, except renal pelvis; E46 Unspecified protein-calorie malnutrition; I13.0 Hypertensive heart and chronic kidney disease with heart failure and stage 1 through stage 4 chronic kidney disease, or unspecified chronic kidney disease; I47.1 Supraventricular tachycardia; I50.32 Chronic diastolic (congestive) heart failure; N18.4 Chronic kidney disease, stage 4 (severe); I50.9 Heart failure, unspecified; D64.9 Anemia, unspecified; D72.829 Elevated white blood cell count, unspecified; E03.9 Hypothyroidism, unspecified; Z68.26 Body mass index [BMI] 26.0-26.9, adult; I48.0 Paroxysmal atrial fibrillation; I49.5 Sick sinus syndrome; R62.7 Adult failure to thrive; Z79.01 Long term (current) use of anticoagulants; Z80.52 Family history of malignant neoplasm of bladder; Z85.46 Personal history of malignant neoplasm of prostate; Z86.711 Personal history of pulmonary embolism; Z90.5 Acquired absence of kidney; Z92.21 Personal history of antineoplastic chemotherapy; Z92.3 Personal history of irradiation; Z95.0 Presence of cardiac pacemaker
CPT/HCPCS: 36415; 71045; 76700; 80048; 80053; 82533; 83735; 83880; 84100; 84443; 85025; 85610; 87040; 93005; 93970; 96361; 96374; 99285; G0378; J1940; J3480; J2270; J7030; J7040